=== PATIENT | male | born 1995 | race Caucasian/White ===

== ENCOUNTER 2021-05-10 12:30 | Emergency (ER) | payer SELFPAY ==
[~2021-05-10] VITALS: Ht 190.5 cm; Wt 81.6 kg
[2021-05-10] MEDS ORDERED: PREDNISONE20 M1 PO ×2 (13:29→15:37)
[2021-05-10] MEDS ORDERED: PROVENTIL HFA6.7 GM INH (15:37)
[2021-05-10] MEDS ORDERED: ZITHROMAX250 MG PO (15:37)
== END 2021-05-10 15:56 | disposition home or self-care (01) ==
LOC: ED 12:30
DX: U07.1 COVID-19 (principal); J18.9 Pneumonia, unspecified organism

== ENCOUNTER 2025-01-05 08:54 | Emergency (ER) | payer OTHER ==
[~2025-01-05] VITALS: Ht 190.5 cm; Wt 95.7 kg
[~2025-01-05 08:54] MED LIST: PREDNISONE20 M1 PO; PROVENTIL HFA6.7 GM INH; ZITHROMAX250 MG PO
[2025-01-05] MEDS ORDERED: NAPROSYN500 MG PO (10:05)
[2025-01-05] MEDS ORDERED: CLINDAMYCIN HC300 MG PO (10:05)
== END 2025-01-05 10:12 | disposition home or self-care (01) ==
LOC: ED 08:54
DX: K04.7 Periapical abscess without sinus (principal); Z90.89 Acquired absence of other organs